=== PATIENT | male | born 1960 | race Caucasian/White ===

== ENCOUNTER → 2018-10-19 07:32 | Outpatient (CLI) | payer OTHER, SELFPAY ==
--- NOTE | 2018-10-19 07:36 | CT_ITS ---
STUDY: CT LUMBAR SPINE WITHOUT CONTRAST REASON FOR EXAM: Male, 58 years old. Back pain. Spinal stimulator device RADIATION DOSAGE (If Supplied By Facility): CTDIvol = ( 30.00 ) mGy, DLP = ( 817.15 ) mGycm TECHNIQUE: The patient was scanned in a multi detector CT scanner. High resolution transaxial imaging was performed. Images were obtained from T12 to S1. Sagittal and coronal images were reconstructed. Individualized dose optimization techniques were used for this CT. COMPARISON: None FINDINGS: Normal lumbar lordosis. There is no substantial scoliosis. Normal vertebrae of the lumbar spine. Endplate degenerative changes with moderate disc space height loss noted at L5-S1. L1-2: Mild endplate degenerative change. No significant disc bulge. Mild bilateral facet degenerative change. No significant neuroforaminal or central canal stenosis. L2-3: Mild to moderate broad-based posterior disc bulge causing mild central canal stenosis with mild to moderate bilateral neural foraminal narrowing. Superimposed moderate bilateral facet degenerative change. L3-4: Mild endplate degenerative change with moderate broad-based posterior disc osteophyte complex causing mild central canal stenosis with mild to moderate bilateral neural foraminal narrowing. Superimposed facet degenerative change L4-5: Small broad-based posterior disc bulge with mild bilateral facet degenerative change. No significant central canal stenosis. Superimposed ligamentum flavum hypertrophy. Mild bilateral neural foraminal narrowing. L5-S1: Moderate to large broad-based posterior disc bulge with posterior osteophytosis. Superimposed ligamentum flavum hypertrophy causing moderate central canal stenosis. There is moderate to severe bilateral neural foraminal narrowing. Superimposed facet degenerative changes Spinal stimulator device is noted. Soft tissues are within normal limits CT/Spine Lumbar without Contrast IMPRESSION: Mild to moderate multilevel degenerative disc disease as detailed above. Electronically Signed: Ha Molina DO at 11:02 EDT Tel , Service support ,
== END ==
PROVIDERS: Family Provider Student in an Organized Health Care Education/Training Program; PCP Student in an Organized Health Care Education/Training Program; Referring Provider Anesthesiology Pain Medicine; Visit Provider Anesthesiology Pain Medicine
DX: M51.26 Other intervertebral disc displacement, lumbar region (principal); M51.36 Other intervertebral disc degeneration, lumbar region; M51.27 Other intervertebral disc displacement, lumbosacral region; M99.53 Intervertebral disc stenosis of neural canal of lumbar region; S33.5XXA Sprain of ligaments of lumbar spine, initial encounter; S33.8XXA Sprain of other parts of lumbar spine and pelvis, initial encounter; X58.XXXA Exposure to other specified factors, initial encounter; Y93.9 Activity, unspecified; Y92.9 Unspecified place or not applicable; Y99.9 Unspecified external cause status
CPT/HCPCS: 72131

== ENCOUNTER 2018-11-16 07:24 | Outpatient (RCR) | payer OTHER, SELFPAY ==
--- NOTE | 2018-11-29 11:42 | HP.PTEVAL_ITS ---
Patient's Visit Information NEHEMIAH GRISSOM is a 58 year old M referred to Physical Therapy by Karlo Giles MD with a diagnosis of Lumbar disc dysfunction. Date of Evaluation: 11/16/18 Physical Therapist: Edinson Ortega DPT - Visit Plan Frequency: 2x /Week Duration: 4 Weeks Plan: Pt. was given neutral spine core stability exercises. He did not present with a directional preference and has some dural signs. Pt. was given HEP for core stability in neutral spine with handout and bands. Pt. to follow up [facility] physician in 2 weeks. - Subjective Findings: Pt. is here today for his initial evaluation with diagnosis of lumbar strain, intervertebral disc discplacement. Pt. has been having increased pain for years with most of his releif coming from medications. He reports pain is never abolished but his medications keep his pain at bay. Pt. reports pain across low back and occassionally into his legs. Pt. is currently not working. Pt. has increased pain with sustain sitting, any lifting, bending forward. Pt. has decreased pain with lying on his back in 90/90, but not complete abolishment, and starts to increase over time. Pt. repors some N/T in his legs occassionally, and his having LLE muscle weakness at times. He reports occassionally that his leg gives out on him. Pt. is hopeful to reduce symptoms in order to complete all ADls and sleep with increased tolerance. - Pain lumbar spine Pain Intensity (Out of 10): 4 Pain Intensity Range: 3, 8 - Objective POSTURE: Pt. has generally flexed posture. Pt. has rounded shoulders, and FH posture. Pt. has increased pain with attempts to increase erect posture. PALPATION: Pt. has increased tenderness with palpation of lumbar erector spinea. Pt. has hypombility with spring testing to L2-L5 with increased pain. NEURO: decreased DTR of L achilles tendon, normal DTR of bilatearl patellar tendons. Pt. has normal senation of bilateral LEs. Pt. is able to rise on heels and toes withotu issues. ROM: lumbar spine: flexion- modloss increase NW, ext max loss increase NE, SB mod loss bulat increase NW, rotation min/mod loss increase NW bilat. Pt. has tight B HS and tight bilat hip flexors. MMT: LLE- ankle DF 4+/5, plantar flexion 5/5; great toe 4/5; knee ext 5-/5, flexion 4+/5; hip- flexion 4/5, abd 4/5, ext 4/5. RLE- ankel 5/5 throughout; knee- ext 5/5, flexion 5-/5; hip- flexion 4+/5, abd 4/5, ext 4+/5. Core strength poor. GAIT: Pt. ambulates with generalized flexed posture. Pt. has decreased step length and decreased arm swing. He ambulates with guarded posture. STAIRS: Pt. is able to complete with step to pattern with icnreased pain during ascending. - Special Tests L/S Slump test left side: Positive L/S Slump test right side: Negative L/S Left Straight Leg Raise: Positive L/S Right Straight Leg Raise: Negative Lumbar Lying: Flexion - Mechanical Response: No effect Lumbar Lying: Flexion - Symptoms During Testing: Increases Lumbar Lying: Flexion - Symptoms After Testing: No worse Lumbar Lying: Extension - Mechanical Response: No effect Lumbar Lying: Extension - Symptoms During Testing: Increases Lumbar Lying: Extension - Symptoms After Testing: No worse - Goals Goal 1:: Pt. to be I with HEP. Goal Time Frame: 4-6 Weeks Goal 2:: Pt. to have increased ROM of lumbar spie by 25% in all directions without increase in symptoms. Goal Time Frame: 4-6 Weeks Goal 3:: Pt. to have increased core stability indicated by increased core and BLE strength by 1/2 grade. Goal Time Frame: 4-6 Weeks Goal 4:: Pt. to increase ambulation distances upto 2000' with 0-2/10 pain in lumbar spine. Goal Time Frame: 4-6 Weeks Goal 5:: Pt. to sleep throughout the night without increase in symptoms. Goal Time Frame: 4-6 Weeks - Rehabilitation Potential Physical Therapy Diagnosis: Pt. has signs and symptosm consitent with low back pain with dural signs. He has some objective data suggesting disc inury. Pt. had no directional preference, but would benefit from core stability exercises. Rehabilitation Potential: Fair - Anticipated Interventions Patient/Client Instruction: Educate patient on: Condition, Plan of Care, Risk Factors, Benefits of Fitness Program For the Purpose of:: To improve health and function, To foster healthy habits, To improve decision making, To facilitate caregiver knowledge Therapeutic Exercise to Include: Strength training, Power training, Endurance training, Balance training, Coordination, Flexibilty training, Gait and locomotor training For the Purpose of:: To decrease pain, To increase ROM, To improve nutrient delivery to tissue, To increase oxygenation perfusion, To improve muscle performance and motor function IF ES: Yes Cryotherapy (ice pack, ice massage): Yes For the Purpose of:: To decrease pain Thank you for the opportunity to evaluate your patient. For Medicare and Medicare HMO plans, please review the plan of care and approve it. It will need to be FAXED BACK to us at [phone] for Medicare purposes. For Medicare only, by signing this I certify the plan of care. Please let me know if there are questions or concerns regarding this plan of care. Physician Signatur e: Date:
== END 2018-11-16 19:00 | disposition home or self-care (01) ==
LOC: PT 07:24
PROVIDERS: Family Provider Student in an Organized Health Care Education/Training Program; PCP Student in an Organized Health Care Education/Training Program; Referring Provider Anesthesiology Pain Medicine; Visit Provider Anesthesiology Pain Medicine
DX: S33.8XXD Sprain of other parts of lumbar spine and pelvis, subsequent encounter (principal); S33.5XXD Sprain of ligaments of lumbar spine, subsequent encounter; M99.53 Intervertebral disc stenosis of neural canal of lumbar region
CPT/HCPCS: 97161

== ENCOUNTER → 2019-02-21 | Outpatient (CLI) | payer MEDICARE, SELFPAY ==
--- NOTE | 2019-02-21 08:58 | RAD_ITS ---
STUDY: X-RAY - CERVICAL SPINE REASON FOR EXAM: Male, 59 years old. Radiating shoulder and back pain TECHNIQUE: 4 view(s) of the cervical spine were obtained. COMPARISON: None FINDINGS: Normal anterior atlantoaxial articulation. Normal odontoid process. There is straightening of the normal cervical lordosis. There is multi-level endplate spondylosis. There is multi-level degenerative disc disease with multilevel disc space narrowing. The soft tissue structures are unremarkable. RAD/Cerv Spine 2 or 3 Views IMPRESSION: Multilevel degenerative changes, most pronounced at C5-6. Electronically Signed: Daniel Dawkins MD at 9:45 EDT , Service support ,
== END | disposition home or self-care (01) ==
LOC: RAD 08:54
PROVIDERS: Family Provider Student in an Organized Health Care Education/Training Program; PCP Student in an Organized Health Care Education/Training Program; Referring Provider Anesthesiology Pain Medicine; Visit Provider Anesthesiology Pain Medicine
DX: M54.2 Cervicalgia (principal)
CPT/HCPCS: 72040